=== PATIENT | female | born 1970 | race Caucasian/White ===

== ENCOUNTER 2020-11-04 12:01 | Outpatient (CLI) | payer BC ==
[2020-11-05 15:34] LABS: SARS-CoV-2 PCR by NAA Not Detected (NotDetected)
== END 2020-11-04 12:02 | disposition home or self-care (01) ==
LOC: CSHLAB 12:01
PROVIDERS: ATTEND Surgery
DX: Z20.822 Contact with and (suspected) exposure to COVID-19 (principal); K21.9 Gastro-esophageal reflux disease without esophagitis
CPT/HCPCS: U0003; U0005

== ENCOUNTER 2020-11-09 06:03 | Day surgery (SDC) | payer BC ==
[2020-11-05 09:44] VITALS: BMI 43.4
[2020-11-09] MEDS ORDERED: Lidocaine 1% MPF 2 ML VIAL ONE (07:00)
[2020-11-09] MEDS ORDERED: Midazolam HCl 2 mg/2 ml Vial ONE (07:35)
[2020-11-09] MEDS ORDERED: Lidocaine 1% PF 5 ML VIAL ONE (07:35)
[2020-11-09] MEDS ORDERED: PROPOFOL 20 ML ONE (07:35)
[2020-11-09] MEDS ORDERED: Fentanyl 100 MCG/2 ML VIAL ONE (07:35)
[2020-11-09] MEDS ORDERED: PROPOFOL 0 ML ONE (07:35)
== END 2020-11-09 09:33 | disposition home or self-care (01) ==
LOC: CSHSDC 06:03
PROVIDERS: ATTEND Surgery
PROC: 0DB58ZZ Excision of Esophagus, Via Natural or Artificial Opening Endoscopic (ICD-10-PCS; principal; 2020-11-09)
DX: K21.00 Gastro-esophageal reflux disease with esophagitis, without bleeding (principal); K21.9 Gastro-esophageal reflux disease without esophagitis; E66.01 Morbid (severe) obesity due to excess calories
CPT/HCPCS: 88305; J2250; J2704; J3010

== ENCOUNTER 2023-03-26 14:44 | Outpatient (CLI) | payer BC | END 2023-03-26 14:45 | disposition home or self-care (01) | LOC: CSHRAD 14:44 | PROVIDERS: ATTEND Family Medicine | DX: M62.830 Muscle spasm of back (principal); S22.021A Stable burst fracture of second thoracic vertebra, initial encounter for closed fracture; M47.816 Spondylosis without myelopathy or radiculopathy, lumbar region; M43.16 Spondylolisthesis, lumbar region; M25.78 Osteophyte, vertebrae | CPT/HCPCS: 72072; 72110 ==

== ENCOUNTER 2023-11-30 09:37 | Outpatient (CLI) | payer BC | END 2023-11-30 09:38 | disposition home or self-care (01) | LOC: CSHRAD 09:37 | PROVIDERS: ATTEND Family Medicine | DX: S89.92XA Unspecified injury of left lower leg, initial encounter (principal) ==